=== PATIENT | female | born 1955 | race Caucasian/White ===

== ENCOUNTER 2021-06-24 13:30 | Emergency (ER) | payer OTHER, BC ==
[~2021-06-24] VITALS: Ht 172.7 cm; Wt 59.4 kg
[~2021-06-24 13:30] MED LIST: ANTIVERT25 MG PO; IBUPROFEN600 MG PO; KEFLEX500 MG PO; LEVOTHROID150 MCG PO; LISINOPRIL5 MG PO; METOPROLOL SUCC50 MG PO
[2021-06-24] MEDS ORDERED: AMLODIPINE BESYL5 MG PO (13:51)
== END 2021-06-24 15:05 | disposition home or self-care (01) ==
LOC: ED 13:30
DX: S61.230A Puncture wound without foreign body of right index finger without damage to nail, initial encounter (principal); W46.0XXA Contact with hypodermic needle, initial encounter; Y99.0 Civilian activity done for income or pay; E03.9 Hypothyroidism, unspecified; I10 Essential (primary) hypertension; Z87.891 Personal history of nicotine dependence; Z88.5 Allergy status to narcotic agent; Z79.899 Other long term (current) drug therapy
CPT/HCPCS: 84460; 90471; 90715; 99283-25